=== PATIENT | female | born 1965 | race African-American/Black ===

== ENCOUNTER 2017-03-18 16:34 | Inpatient (IN) ==
[2017-03-18] MEDS ORDERED: LACTULOSE 20 GM/30 ML UDCUP PO PRN (17:28)
[2017-03-18] MEDS ORDERED: chlorproMAZINE INJ 50 MG in SODIUM CHLORIDE 0.9% 100 ML IV PRN (17:28)
[2017-03-18] MEDS ORDERED: guaiFENesin 200 MG/10 ML UDCUP PO PRN (17:28)
[2017-03-18] MEDS ORDERED: ALPRAZolam 0.25 MG TABLET PO PRN (17:28)
[2017-03-18] MEDS ORDERED: MYLANTA/LIDO VISC 2:1 300 ML BOTTLE SWISH/SPIT PRN (17:28)
[2017-03-18] MEDS ORDERED: diphenhydrAMINE CAP 25 MG CAPSULE PO PRN (17:28)
[2017-03-18] MEDS ORDERED: chlorproMAZINE INJ 25 MG in SODIUM CHLORIDE 0.9% 100 ML IV PRN (17:28)
[2017-03-18] MEDS ORDERED: BENZTROPINE 2 MG/2 ML AMP IV PRN (17:28)
[2017-03-18] MEDS ORDERED: PROMETHAZINE INJ 25 MG in SODIUM CHLORIDE 0.9% 50 ML IV PRN (17:28)
[2017-03-18] MEDS ORDERED: ALUMINUM/MAGNES/SIMETH MAX STR 30 ML UDCUP PO PRN (17:28)
[2017-03-18] MEDS ORDERED: TEMAZEPAM 7.5 MG CAPSULE PO PRN (17:28)
[2017-03-18] MEDS ORDERED: chlorproMAZINE 25 MG TABLET PO PRN (17:28)
[2017-03-18] MEDS ORDERED: LOPERAMIDE 2 MG CAPSULE PO PRN ×2 (17:28)
[2017-03-18] MEDS ORDERED: traMADol 50 MG TABLET PO PRN (17:28)
[2017-03-18] MEDS ORDERED: MAGNESIUM HYDROXIDE SUSP 30 ML UDCUP PO PRN (17:28)
[2017-03-18] MEDS ORDERED: MYLANTA/LIDO VISC 2:1 300 ML BOTTLE SWISH/SWAL PRN (17:28)
[2017-03-18] MEDS ORDERED: SODIUM CHLORIDE 0.9% 1,000 ML IV ONE (17:35)
--- NOTE | 2017-03-18 18:19 | EKG Report ---
Stationary ECG Study [facility] Test Date: 03/18/2017 6:19:12 PM Pat Name: POLO DELONG Department: Room: 430 Gender: F Marketing Graphics Specialist: MARCE,LEAN SENSEI : 1965 Requested by: Miguel Alvarado Order Number: [id number] Reading MD: RADHA WILSON Intervals [place] Rate: 129 P: 51 PA: 147 QRS: 26 QRSD: 77 T: 52 QT: 377 QTc: 453 Interpretive Statements SINUS TACHYCARDIA AT 129 BPM NONSPECIFIC T-WAVE ABNORMALITY Electronically Signed On 03-19-17 07:23:10 CDT by RADHA WILSON [id number]
[2017-03-18] MEDS: MEROPENEM 1,000 MG in SODIUM CHLORIDE 0.9% 100 ML IV SCH (19:10)
[2017-03-18] MEDS: SODIUM CHLORIDE 0.9% 1,000 ML IV SCH (20:11)
[2017-03-19] MEDS: ACETAMINOPHEN 325 MG TABLET PO PRN ×2 (01:02→13:57)
[2017-03-19 02:10] LABS: Apearance,Urine CLEAR (Clear); Bacteria,Urine Occasional /HPF (Few); Bilirubin,Urine Negative (Negative); Blood, Urine Small mg/dL (Negative); Glucose,Urine (UA) Negative (Negative); Ketones,Urine Negative (Negative); Mucus,Urine Occasional /LPF (Occasional); Nitrite,Urine Negative (Negative); Protein,Urine 100 MG/DL; RBC,Urine 6 /HPF (0-4); Squamous Epithelial Cell,Urine Occasional /HPF (0-10); Urine Color Yellow (Yellow); Urine Specific Gravity 1.009 (1.001-1.035); Urine Urobilinogen < 2.0 EU/DL (0.2-1.0); WBC,Urine 17 /HPF (0-6)
[2017-03-19 02:41] LABS: Hematocrit 21.6 VOL% (35.7-47.0); Hemoglobin 7.2 GM/DL (12.0-16.0); Immature Granulocytes % 0.6 %; Immature Granulocytes Absolute 0.02 #; Lymphocytes # 0.5 10*3/uL (1.4-4.0); Mean Corpuscular HGB Conc 33.3 GM/DL (32-36); Mean Corpuscular Hemoglobin 24 PG (27-34); Mean Platelet Volume 11.5 FL (9.6-12.0); Monocytes # 0.1 10*3/uL (0.11-0.8); Neutrophils # 2.9 10*3/uL (1.4-7.4); Neutrophils % 82.4 % (38.7-73.9); Platelet Count 141 T/CUMM (130-400); Red Blood Count 2.96 MC/CUMM (3.8-5.5); Red Cell Distribution Width 15.1 % (9.3-17.3); White Blood Count 3.5 T/CUMM (4-12)
[2017-03-19 02:43] LABS: Albumin 2.4 G/DL (3.4-5.0); Bilirubin,Total 0.7 MG/DL (0.2-1.0); Calcium 8.2 MG/DL (8.5-10.1); Magnesium 1.6 MG/DL (1.8-2.4); Potassium 4.4 MMOL/L (3.5-5.1); Total Protein 6.9 G/DL (6.4-8.3)
[2017-03-19 03:12] LABS: Band Neutrophils 1 % (0-10); Lymphocytes 7 % (20-55); Segmented Neutrophils 90 % (50-85); Total Cells Counted 100
[2017-03-19 03:13] LABS: Platelet Estimate Adequate
[2017-03-19 03:15] LABS: Hypochromasia 2+; Ovalocytes Slight
[2017-03-19] MEDS: MEROPENEM 1,000 MG in SODIUM CHLORIDE 0.9% 100 ML IV SCH ×2 (06:07→20:37)
[2017-03-19] MEDS ORDERED: MAGNESIUM SULF INJ 3 GM in SODIUM CHLORIDE 0.9% 100 ML IV ONE (08:57)
[2017-03-19] MEDS ORDERED: SODIUM CHLORIDE 0.9% 250 ML IV PRN (08:57)
--- NOTE | 2017-03-19 09:00 | Oncology History&Physical ---
Assessment and Plan (1) Urinary tract infection Status: Acute Assessment and plan: Continuing antibiotics which will began overnight. Patient's heart rate is improved with hydration though she will need red blood cell transfusion today. I believe she has an underlying unspecified inflammatory disorder with rheumatologic workup in progress. Current Visit: Yes History of Present Illness Chief complaint: Fever History of present illness: Ms. Pearson is a 52 year old female With fever and weight loss. She was seen by me yesterday in the office as an initial consultation with an inflammatory appearing anemia. She denied blood loss. GI workup was performed with both upper and lower endoscopy around September of this year at [facility]. She has lost 30-40 pounds over several months.. She was noted to be tachycardic yesterday and labs in the office showed evidence of urinary tract infection. Home Medications Medication Instructions Recorded Confirmed Type No Known Home Medications [No 03/18/17 03/18/17 History Known Home Medications] Allergies Allergy/AdvReac Type Severity Reaction Status Date / Time cephalexin [From Keflex] Allergy Intermediate RASH Verified 03/18/17 17:27 sulfamethoxazole Allergy Intermediate RASH Verified 03/18/17 17:27 [From Bactrim] trimethoprim [From Bactrim] Allergy Intermediate RASH Verified 03/18/17 17:27 Medical,Surgical,& Family Hx - Family History Family History: Reports;: Family Hypertension (mom and dad) - Social History Smoking Status: Never smoker Frequency of Alcohol Use: None Type of Drug Use: None - Constitutional Constitutional: Present: chills, fatigue, fever(s), malaise, weight loss. Absent: increased appetite, night sweats, weight gain - EENT Ears: Absent: ear discharge, ear pain, tinnitus Nose, mouth and throat: Present: sore throat. Absent: dizziness, dysphagia, vertigo - Gastrointestinal Gastrointestinal: Absent: abdominal pain, cramping, diarrhea - Genitourinary Genitourinary ROS female: Absent: difficulty urinating - Musculoskeletal Musculoskeletal ROS: Present: muscle cramps, muscle weakness - Neurological Neurological ROS: Absent: focal weakness - Psychiatric Psychiatric General: Present: depression - Hematologic/Lymphatic Hematologic/Lymphatic: Absent: lymphadenopathy Exam - Constitutional Vitals: Period Temp Pulse Resp BP Sys/Andrews Pulse Ox Last 24 Hr 99.0 F-102.9 F 109-131 18-21 91-146/54-70 94-99 General appearance: mild distress, under weight - Head Head Exam: Present: normocephalic, atraumatic - Eye Eye Exam: Present: EOMI. Absent: conjunctival injection, periorbital swelling, scleral icterus Pupils: Present: PERRL, normal accommodation - ENT ENT exam: Present: normal external ear exam - Neck Neck exam: Present: normal inspection. Absent: lymphadenopathy - Respiratory Respiratory exam: Present: CTAB. Absent: accessory muscle use, chest wall tenderness - Cardiovascular Cardiovascular exam: Present: tachycardia. Absent: systolic murmur - GI/Abdominal GI/Abdominal exam: Absent: ascites, distended, firm, guarding - Extremities Exam Extremities exam: Absent: edema - Neurological Exam Neurological exam: Present: alert, oriented X3 - Psychiatric Psychiatric exam: Present: normal affect, normal mood Results - Labs CBC & BMP: 03/19/17 01:34 03/19/17 01:34
[2017-03-19] MEDS: SODIUM CHLORIDE 0.9% 1,000 ML IV SCH (09:29)
[2017-03-19] MEDS: ONDANSETRON 4 MG/2 ML VIAL IV PRN (12:44)
[2017-03-20] MEDS: ONDANSETRON 4 MG/2 ML VIAL IV PRN ×2 (02:47→18:40)
[2017-03-20] MEDS ORDERED: PROMETHAZINE 25 MG/1 ML VIAL ONE (05:25)
[2017-03-20 06:30] LABS: Eosinophils % 0.8 % (0.00-10.9); Hematocrit 29.1 VOL% (35.7-47.0); Hemoglobin 9.8 GM/DL (12.0-16.0); Immature Granulocytes % 0.5 %; Immature Granulocytes Absolute 0.02 #; Lymphocytes # 0.4 10*3/uL (1.4-4.0); Lymphocytes % 9.6 % (21.3-54.2); Mean Corpuscular HGB Conc 33.7 GM/DL (32-36); Mean Corpuscular Hemoglobin 26 PG (27-34); Mean Corpuscular Volume 76.8 FL (87-102); Mean Platelet Volume 11.7 FL (9.6-12.0); Monocytes # 0.1 10*3/uL (0.11-0.8); Monocytes % 2.5 % (1.7-12.7); Neutrophils # 3.2 10*3/uL (1.4-7.4); Neutrophils % 86.6 % (38.7-73.9); Platelet Count 144 T/CUMM (130-400); Red Blood Count 3.79 MC/CUMM (3.8-5.5); Red Cell Distribution Width 16.9 % (9.3-17.3); White Blood Count 3.6 T/CUMM (4-12)
[2017-03-20 06:54] LABS: Albumin 2.3 G/DL (3.4-5.0); Bilirubin,Total 0.8 MG/DL (0.2-1.0); Calcium 7.8 MG/DL (8.5-10.1); Osmolality,Calculated 271.1 MOS/KG (273-304); Potassium 4.1 MMOL/L (3.5-5.1)
[2017-03-20 07:06] LABS: Hypochromasia 1+; Microcytosis 1+; Ovalocytes Few; Platelet Estimate Adequate
--- NOTE | 2017-03-20 07:22 | CT Report ---
CT chest abdomen pelvis wo con Indication: Anemia Comparison: None. Technique: CT of the chest, abdomen and pelvis was performed without administration of intravenous contrast. Coronal and sagittal reformatted images were additionally created and submitted for review. The total DLP is 298 mGy*cm. Dose reduction: This CT exam was performed using one or more of the following dose reduction techniques: Automated exposure control, automated adjustment of the mA and/or KV according to patient size, or use of iterative reconstruction technique. Findings: CHEST: Lungs are probably clear. No focal consolidation. No pneumothorax or pleural effusion. Central airways are patent. Minimal posterior basilar atelectatic changes noted within the lungs, slightly more prominent on the left. No suspicious pulmonary nodules or masses are identified. There is no obvious adenopathy in the chest visualized. Thyroid gland appears grossly unremarkable. Heart and great vessels are within normal limits for noncontrast appearance.. ABDOMEN: Liver/Gallbladder: Unenhanced liver appears grossly unremarkable. No biliary ductal dilatation. No gallstones. 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 Spleen: No acute findings. Pancreas: No acute findings. Adrenals: Within normal limits in appearance. Kidneys: Both kidneys are symmetric in size with no evidence of nephrolithiasis or hydronephrosis. Bowel/mesentery: Small bowel is nondilated. Oral contrast noted throughout small bowel and colon with no focal obstructions. There is no free fluid/air within the abdomen. A few scattered colonic diverticula are noted. There is no CT evidence of acute diverticulitis. Mild distal descending and sigmoid colon colonic mucosal thickening is suggested which may represent a degree of underlying colitis. The appendix appears normal. Retroperitoneum: No evidence of aortic aneurysm or significant retroperitoneal adenopathy. PELVIS: No free fluid in the dependent pelvis. Uterus and ovaries appear grossly unremarkable for noncontrast CT technique. Bladder is mildly distended but otherwise grossly unremarkable. There is no adenopathy in the pelvis. BONES: No acute or suspicious osseous abnormalities are identified. IMPRESSION: 1. No acute abnormality in the chest, abdomen or pelvis. 2. Minimal left basilar atelectatic changes. 3. Minimal mucosal thickening suggested within the distal descending and sigmoid colon may represent nondistention or underlying infectious/inflammatory colitis changes. A few scattered diverticula are noted there is no CT evidence of acute diverticulitis. 03/20/2017 7:13 AM PROCEDURE INTERPRETED AT [facility] DEPARTMENT OF RADIOLOGY Final Report Signed by: Ermias Hay
[2017-03-20] MEDS: MEROPENEM 1,000 MG in SODIUM CHLORIDE 0.9% 100 ML IV SCH ×2 (07:54→18:39)
[2017-03-20] MEDS: SODIUM CHLORIDE 0.9% 1,000 ML IV SCH ×2 (07:58→10:07)
--- NOTE | 2017-03-20 08:29 | Oncology Progress Note ---
Assessment and Plan (1) Urinary tract infection Status: Acute Assessment and plan: Continuing antibiotics which will began overnight. Patient's heart rate is improved with hydration though she will need red blood cell transfusion today. I believe she has an underlying unspecified inflammatory disorder with rheumatologic workup in progress. Current Visit: Yes Oncology Subjective PN Interval history: Patient still with fever there are no clear infectious etiology is confirmed. CT scan shows some mild colon thickening though her abdomen is nontender and her bowel function appears normal. She did report colonoscopy at [facility] 6 months prior. Her rheumatoid factor is negative and her DANIEL is pending. She is certainly felt to have an underlying inflammatory disorder. I am going to check a 24-hour urine for protein given abnormal UA and elevated creatinine. She can likely be discharged home tomorrow with further clinic follow-up. Exam - Constitutional Vitals: Period Temp Pulse Resp BP Sys/Andrews Pulse Ox Last 24 Hr 97.0 F-102.9 F 100-132 16-20 102-121/56-71 93-99 Results - Labs CBC & BMP: 03/20/17 04:59 03/20/17 04:59
[2017-03-20] MEDS ORDERED: BISACODYL 5 MG TABLET PO ONE (09:53)
[2017-03-20 10:24] LABS: Anti-Nuclear Antibody Pattern HOMOGENEOUS
[2017-03-20] MEDS: ACETAMINOPHEN 325 MG TABLET PO PRN ×2 (13:17→20:04)
[2017-03-21] MEDS: SODIUM CHLORIDE 0.9% 1,000 ML IV SCH (00:57)
[2017-03-21 05:12] LABS: Eosinophils % 0.3 % (0.00-10.9); Hematocrit 32.2 VOL% (35.7-47.0); Hemoglobin 10.6 GM/DL (12.0-16.0); Immature Granulocytes % 0.9 %; Immature Granulocytes Absolute 0.03 #; Lymphocytes # 0.6 10*3/uL (1.4-4.0); Lymphocytes % 17.2 % (21.3-54.2); Mean Corpuscular HGB Conc 32.9 GM/DL (32-36); Mean Corpuscular Hemoglobin 26 PG (27-34); Mean Corpuscular Volume 77.6 FL (87-102); Monocytes # 0.1 10*3/uL (0.11-0.8); Monocytes % 2.7 % (1.7-12.7); Neutrophils # 2.7 10*3/uL (1.4-7.4); Neutrophils % 78.9 % (38.7-73.9); Platelet Count 122 T/CUMM (130-400); Red Blood Count 4.15 MC/CUMM (3.8-5.5); Red Cell Distribution Width 17.4 % (9.3-17.3); White Blood Count 3.4 T/CUMM (4-12)
[2017-03-21] MEDS: MEROPENEM 1,000 MG in SODIUM CHLORIDE 0.9% 100 ML IV SCH (05:58)
[2017-03-21 06:25] LABS: Hypochromasia 2+; Lymphocytes 10 % (20-55); Platelet Estimate Decreased; Polychromasia Slight; Segmented Neutrophils 83 % (50-85); Target Cells Slight; Total Cells Counted 100
[2017-03-21 07:49] LABS: Double Stranded DNA Antibodies > 200.0 IU/ML
[2017-03-21 07:51] LABS: Anti SS-A Antibodies < 16 EU/ML; Anti SS-B Antibodies < 16 EU/ML
[2017-03-21 08:10] VITALS: BP 130/63
--- NOTE | 2017-03-21 09:33 | Discharge Summary ---
Hospital Course - Hospital Course Hospital Course: Patient admitted with fever tachycardia and systemic inflammatory disorder. Her blood cultures and urine culture are negative. She has received antibiotics during this 4 day hospitalization though these will be discontinued. A CT scan of the abdomen pelvis failed to demonstrate any definite malignancy. Sed rate and CRP are markedly elevated. The patient has a polyclonal gammopathy. Rheumatoid factor is negative though her DANIEL has returned strongly positive at 1-640 titer. Her double-stranded DNA is also significantly elevated at greater than 200. I am going to place her on 20 mg of prednisone daily and [place] 5 as needed pain. Other home medications are unchanged. I am arranging follow-up at my office in 2 weeks and seeking outpatient rheumatology referral. Diagnosis - Discharge Diagnosis (1) Urinary tract infection Status: Acute Discharge Plan - Discharge Medications No Action No Known Home Medications [No Known Home Medications] - Follow Up or Referral - Forms/Instructions Exam - Constitutional Vitals: Period Temp Pulse Resp BP Sys/Andrews Pulse Ox Last 24 Hr 98.2 F-102.6 F 104-125 18-200 106-130/63-72 95-99 Discharge Results Procedures and tests throughout hospitalization: Pending Orders 03/19/17 Urine Culture Routine 03/19/17 01:34 Blood Culture Stat 03/20/17 08:27 Total Protein 24 Hr Urine Routine Labs on day of discharge: Labs from last 24 hours 03/21/17 03/19/17 04:38 09:24 WBC 3.4 L RBC 4.15 Hgb 10.6 L Hct 32.2 L MCV 77.6 L MCH 26 L MCHC 32.9 RDW 17.4 H Plt Count 122 L MPV 11.0 Neut % (Auto) 78.9 H Lymph % (Auto) 17.2 L Dale % (Auto) 2.7 Eos % (Auto) 0.3 Baso % (Auto) 0.0 Neut # (Auto) 2.7 Lymph # (Auto) 0.6 L Dale # (Auto) 0.1 L Eos # (Auto) 0.0 Baso # (Auto) 0.0 Total Counted 100 Immature Gran % 0.9 Nucleated RBC % 0.0 Immature Gran # 0.03 Segmented Neutrophils 83 Lymphocytes 10 L Monocytes 7 Nucleated RBCs # 0.00 Platelet Estimate Decreased Polychromasia Slight Hypochromasia 2+ Target Cells Slight DANIEL Screen Positive (>=1:160) H DANIEL Titer 1:640 DANIEL Pattern Homogeneous SS-A/Ro Antibody < 16 SS-B/La Antibody < 16 Sm (Phillips) Antibody < 16 IMPORT/EXPORT AGENT Antibody < 16 Double Strand DNA Ab > 200.0 Preliminary micro results at discharge 03/19/17 Unknown Urine Culture - Preliminary Urine,Clean Catch No Growth at 24 hours. 03/19/17 01:34 Blood Culture - Preliminary Blood No growth at 1 day 03/19/17 01:34 Blood Culture - Preliminary Blood No growth at 1 day DS: Provider Date of admission: 03/18/17 16:50 Primary care physician: Nonstaff Physician Attending physician on admission: Miguel Zavala MD Discharging clinician: Miguel Zavala MD
[2017-03-21] MEDS ORDERED: HEPARIN LOCK FLUSH 500 UNIT/5 ML SYRINGE IV ONE (11:02)
--- NOTE | 2017-03-26 13:06 | Physician Query Form ---
CLICK EDIT DOCUMENT TO SELECT QUERY ANSWER --> OK --> SIGN Bibi Dasilva RN Clinical [employer] M W) [phone] (f) [phone] [email or web address] PROVIDERS: Make your selection(s) from the choices in EACH section by typing an "x" and enter comments in the comment section. Please use your independent medical judgment in providing your response. This request does not imply that any particular answer is desired or expected. CLINICAL INDICATORS: (Providers should not edit this section) Based on documentation of "fever tachycardia and systemic inflammatory disorder ". Pt. admitted with UTI. Jejt=992.9, Svmso=294. WBC=3.5. Pt. treated with IV Merrem. Please clarify which, if any, of the following is the etiology of the above symptoms and treatment rendered: ( ) Sepsis due to a localized infection, please specify infection: ( ) Severe Sepsis (sepsis with acute organ failure) - Please specify type acute organ failure: ( ) Septic Shock (severe sepsis with hypotension) ( x) SIRS of noninfectious origin ( ) Sepsis due to a device, implant or graft, please specify: ( ) Localized infection only, without systemic illness, please specify infection : ( ) Bacteremia (abnormal lab finding only, does not indicate systemic illness) ( ) Other condition, please specify: ( ) Clinically unable to determine Criteria for Sepsis (SIRS due to an infection) should be based on 2 or more of the following being present: Temperature > 101F or < 96.8F WBC > 12,000 or < 4,000, or > 10% bands Tachycardia HR > 90 beats/minute Tachypnea RR > 20 breaths/minute or PaCO2 > 32mmHg Lactate level > 2.0 mmol/L (>4 is equivalent to severe sepsis) Altered Mental Status Mottling of skin or prolonged capillary refill Non-diabetic hyperglycemia (blood sugar >120 mg/dl) Other evidence of acute organ failure associated with sepsis ( severe sepsis) COMMENTS: PLEASE ALSO DOCUMENT RESPONSE IN PROGRESS NOTES AND/OR DISCHARGE SUMMARY Use of terms such as suspected, likely, or probable (associated with a specific diagnosis that is being evaluated, monitored, or treated as if it exists) are acceptable and can be restated in the discharge summary if not ruled out. MTDD
== END 2017-03-21 11:30 | disposition home or self-care (01) | DRG 690 ==
LOC: N.4E → OBSVTOIN 16:50
PROVIDERS: ADMIT Specialist; ATTEND Specialist